=== PATIENT | male | born 1990 | race Caucasian/White ===

== ENCOUNTER 2021-09-26 01:38 | Emergency (ER) | payer OTHER ==
--- NOTE | 2021-09-26 02:11 | ED ---
General Adult HPI - General Stated complaint: Testicular Pain Time Seen by Provider: 09/26/21 01:54 Source: patient, RN notes reviewed Mode of arrival: ambulatory Limitations: no limitations - History of Present Illness Initial comments: This is a 31-year-old male presents emergency Department chief complaint testicular pain. Patient states having ongoing issues. Patient was here [facility] last night was given Toradol discharged home. Patient states that he's had small stones prior to this but states pain worsened tonight burn the emergency room here. Patient was given 100mcg fentanyl prior arrival. Patient has no dysuria no hematuria no trauma denies any significantswelling redness no abdominal pain no other complaints. - Related Data Previous Rx's Medication Instructions Recorded Ketorolac [Toradol] 10 mg PO Q8HR #15 tab 09/26/21 Allergies Allergy/AdvReac Type Severity Reaction Status Date / Time No Known Allergies Allergy Verified 09/26/21 02:23 Review of Systems ROS Statement: Those systems with pertinent positive or pertinent negative responses have been documented in the HPI. ROS Other: All systems not noted in ROS Statement are negative. General Exam Limitations: no limitations General appearance: alert, in no apparent distress Head exam: Present: atraumatic, normocephalic, normal inspection Eye exam: Present: normal appearance, PERRL, EOMI. Absent: scleral icterus, conjunctival injection, periorbital swelling ENT exam: Present: normal exam, normal oropharynx, mucous membranes moist Respiratory exam: Present: normal lung sounds bilaterally. Absent: respiratory distress, wheezes, rales, rhonchi, stridor Cardiovascular Exam: Present: regular rate, normal rhythm, normal heart sounds. Absent: systolic murmur, diastolic murmur, rubs, gallop, clicks GI/Abdominal exam: Present: soft, normal bowel sounds. Absent: distended, tenderness, guarding, rebound, rigid exam: Present: normal inspection, testicular tenderness. Absent: urethral discharge, scrotal swelling, vertical testicular lie Back exam: Absent: CVA tenderness (R), CVA tenderness (L) Course Vital Signs 09/26/21 02:25 Temperature 97.4 F L Pulse Rate 98 Respiratory 14 Rate Blood Pressure 136/84 O2 Sat by Pulse 98 Oximetry Medical Decision Making - Medical Decision Making 31-year-old male presented for scrotal pain. This apparently has been ongoing issue and which he now is received 3 ultrasound with no acute findings. Patient was placed on antibiotics for possible infection. Patiently advised to follow- up with urology as there is no obvious signs of injury infection swelling redness or any other acute findings. - Lab Data Lab Results 09/26/21 Range/Units 03:33 Urine Color Yellow Urine Appearance Clear (Clear) Urine pH 5.5 (5.0-8.0) Ur Specific [place] 1.024 (1.001-1.035) Urine Protein Negative (Negative) Urine Glucose (UA) 4+ H (Negative) Urine Ketones Negative (Negative) Urine Blood Negative (Negative) Urine Nitrite Negative (Negative) Urine Bilirubin Negative (Negative) Urine Urobilinogen <2.0 (<2.0) mg/dL Ur Leukocyte Esterase Negative (Negative) Disposition Clinical Impression: Testicular pain, right Disposition: HOME SELF-CARE Condition: Stable Instructions (If sedation given, give patient instructions): Testicle Pain (ED) Additional Instructions: Please return to the Emergency Department if symptoms worsen or any other concerns. Prescriptions: Ketorolac [Toradol] 10 mg PO Q8HR #15 tab Is patient prescribed a controlled substance at d/c from ED?: No Referrals: Dale Parikh MD [STAFF PHYSICIAN] - 1-2 days Time of Disposition: 04:02
[2021-09-26 02:29] VITALS: BP 136/84; PULSE 98; RESP 14; TEMP 97.4
--- NOTE | 2021-09-26 03:00 | US ---
EXAMINATION TYPE: US scrotum with doppler. Grayscale and color Doppler Duplex imaging performed of t chase scrotum. DATE OF EXAM: 09/26/2021 COMPARISON: NONE CLINICAL HISTORY: pain. EXAM MEASUREMENTS: TESTICLES: Right Testicle: 3.1 x 2.0 x 3.2 cm Left Testicle: 3.6 x 2.1 x 2.8 cm EPIDIDYMIS HEAD: Right Epididymis: 0.8 cm Left Epididymis: 0.8 cm Doppler performed to assess for testicular vascularity; good bilateral color flow and waveforms are s een. There is no evidence of testicular torsion. Presence of hydroceles: no Presence of varicoceles: no IMPRESSION: Normal exam. No evidence of testicular torsion or mass. No free fluid.
[2021-09-26 03:56] LABS: Appearance,Urine Clear (Clear); Bilirubin,Urine Negative (Negative); Blood,Urine Negative (Negative); Color,Urine Yellow; Glucose,Urine (UA) 4+ (Negative); Ketones,Urine Negative (Negative); Leukocyte Esterase,Urine Negative (Negative); Nitrite,Urine Negative (Negative); PH, Urine 5.5 (5.0-8.0); Protein,Urine Negative (Negative); Specific Gravity,Urine 1.024 (1.001-1.035); Urobilinogen,Urine <2.0 mg/dL (<2.0)
[2021-09-26 04:19] LABS: Glucose,Whole Blood 205 mg/dL (75-99)
== END 2021-09-26 05:30 | disposition home or self-care (01) ==
LOC: EC 01:38
DX: N50.811 Right testicular pain (principal)
CPT/HCPCS: 36415; 76870; 81003; 93975; 99284

== ENCOUNTER 2021-10-01 14:21 | Emergency (ER) | payer OTHER ==
[2021-10-01 14:25] LABS: Glucose,Whole Blood 285 mg/dL (75-99)
[2021-10-01 14:27] VITALS: BP 147/102; PULSE 120; RESP 16; TEMP 98.1
[2021-10-01] MEDS ORDERED: SODIUM CHLORIDE 0.9% 1,000 ML IV STA (14:28)
[2021-10-01] MEDS ORDERED: HYDROmorphone 1 MG/ML 1 ML SYRINGE IVP STA (14:30)
[2021-10-01] MEDS ORDERED: ONDANSETRON 4 MG/2 ML VIAL IVP STA (14:30)
--- NOTE | 2021-10-01 14:35 | ED ---
Male Urogenital HPI - General Chief complaint: Urogenital Stated complaint: Male Time Seen by Provider: 10/01/21 14:22 Source: patient, EMS, RN notes reviewed Mode of arrival: EMS Limitations: no limitations - History of Present Illness Initial comments: This is a pleasant 31-year-old male with a history of insulin-controlled diabetes mellitus. He presents emergent department today complaining of testicular pain. States this is going on for a few weeks. Became worse and he went to the hospital. Patient had an ultrasound there and saw urologist yesterday. Patient was started on doxycycline. It sounds as if the patient was diagnosed with epididymitis. Patient complaining of pain to the right and left testicle this time. According to EMS he had elevated blood sugar in the ambulance of greater than 500. However rechecked it here and it was 283. He denies any nausea or vomiting. No chest pain or shortness of breath. No fever or chills. No abdominal pain. No skin rashes or lesions. No penile discharge. No hematuria. States any manipulation of the testicles causes significant pain. Patient has been trying a jockstrap as directed by the urologist. Denies headache. Denies numbness or tingling. No vision or hearing changes. - Related Data Home Medications Medication Instructions Recorded Confirmed INSULIN LISPRO (humaLOG) [humaLOG] 10 units SQ AC-TID 10/01/21 10/01/21 Ibuprofen [Motrin Ib] 400 mg PO Q8H PRN 10/01/21 10/01/21 Insulin Glargine [Lantus Vial] 40 unit SQ HS 10/01/21 10/01/21 Previous Rx's Medication Instructions Recorded HYDROcodone/APAP 5-325MG [[place] 1 tab PO Q6HR PRN 3 Days #12 tab 10/01/21 5-325] Allergies Allergy/AdvReac Type Severity Reaction Status Date / Time No Known Allergies Allergy Verified 10/01/21 16:27 Review of Systems ROS Statement: Those systems with pertinent positive or pertinent negative responses have been documented in the HPI. ROS Other: All systems not noted in ROS Statement are negative. Past Medical History Past Medical History: Diabetes Mellitus Additional Past Medical History / Comment(s): DM Type 1 History of Any Multi-Drug Resistant Organisms: None Reported Past Surgical History: No Surgical Hx Reported Past Psychological History: No Psychological Hx Reported Smoking Status: Current every day smoker Past Alcohol Use History: None Reported Past Drug Use History: Marijuana General Exam Limitations: no limitations General appearance: alert, in distress Head exam: Present: atraumatic, normocephalic, normal inspection Eye exam: Present: normal appearance, PERRL, EOMI. Absent: scleral icterus, conjunctival injection, periorbital swelling ENT exam: Present: normal exam, mucous membranes moist Neck exam: Present: normal inspection. Absent: tenderness, meningismus, lymphadenopathy Respiratory exam: Present: normal lung sounds bilaterally. Absent: respiratory distress, wheezes, rales, rhonchi, stridor Cardiovascular Exam: Present: normal rhythm, tachycardia, normal heart sounds. Absent: systolic murmur, diastolic murmur, rubs, gallop, clicks GI/Abdominal exam: Present: soft, normal bowel sounds. Absent: distended, tenderness, guarding, rebound, rigid exam: Present: testicular tenderness, circumcision, other (Patient has tenderness over the right epididymal area and to a lesser sent the left. There is no evidence of testicular torsion on exam. Cremasteric reflexes intact.). Absent: urethral discharge Extremities exam: Present: normal inspection, full ROM, normal capillary refill. Absent: tenderness, pedal edema, joint swelling, calf tenderness Back exam: Present: normal inspection Neurological exam: Present: alert, oriented X3, CN II-XII intact Psychiatric exam: Present: normal affect, normal mood Skin exam: Present: warm, dry, intact, normal color. Absent: rash Course Vital Signs 10/01/21 14:24 Temperature 98.1 F Pulse Rate 120 H Respiratory 16 Rate Blood Pressure 147/102 O2 Sat by Pulse 98 Oximetry Medical Decision Making - Medical Decision Making Patient presents with testicular pain. Physical exam findings not consistent with testicular torsion. Does have some pain over the epididymis. On to be hyperglycemic at 283. We'll order basic lab work, we'll repeat the ultrasound. Pain medicine here. Patient apparently has had multiple visits to facilities and has been treated with antibiotics. No evidence of testicular torsion or epididymitis on ultrasound. We'll have the patient continue to take the doxycycline as prescribed by his urologist in [place]. Patient was told to return to the ER for any signs or symptoms worsen. Told to return immediately if any other problems arise. All questions answered. Treatment plan discussed. Patient in agreement She can continue the ibuprofen at home. I did agree to give him a short course of [place], 3 days. - Lab Data Result diagrams: 10/01/21 14:48 10/01/21 14:48 Lab Results 10/01/21 10/01/21 10/01/21 Range/Units 14:23 14:24 14:48 WBC 5.8 (3.8-10.6) k/uL RBC 4.35 (4.30-5.90) m/uL Hgb 12.9 L (13.0-17.5) gm/dL Hct 41.2 (39.0-53.0) % MCV 94.8 (80.0-100.0) fL MCH 29.7 (25.0-35.0) pg MCHC 31.3 (31.0-37.0) g/dL RDW 14.0 (11.5-15.5) % Plt Count 460 H (150-450) k/uL MPV 6.7 Neutrophils % 50 % Lymphocytes % 30 % Monocytes % 9 % Eosinophils % 7 % Basophils % 1 % Neutrophils # 2.9 (1.3-7.7) k/uL Lymphocytes # 1.7 (1.0-4.8) k/uL Monocytes # 0.5 (0-1.0) k/uL Eosinophils # 0.4 (0-0.7) k/uL Basophils # 0.1 (0-0.2) k/uL Sodium (137-145) mmol/L Potassium (3.5-5.1) mmol/L Chloride (98-107) mmol/L Carbon Dioxide (22-30) mmol/L Anion Gap mmol/L BUN (9-20) mg/dL Creatinine (0.66-1.25) mg/dL Est GFR (CKD-EPI)AfAm (>60 ml/min/1.73 sqM) Est GFR (CKD-EPI)NonAf (>60 ml/min/1.73 sqM) Glucose (74-99) mg/dL POC Glucose (mg/dL) 285 H (75-99) mg/dL POC Glu Art Manager ID Samara White Plasma Lactic Acid Jonathan (0.7-2.0) mmol/L Calcium (8.4-10.2) mg/dL Total Bilirubin (0.2-1.3) mg/dL AST (17-59) U/L ALT (4-49) U/L Alkaline Phosphatase (38-126) U/L Total Protein (6.3-8.2) g/dL Albumin (3.5-5.0) g/dL Urine Color Light Yellow Urine Appearance Clear (Clear) Urine pH 6.5 (5.0-8.0) Ur Specific [place] 1.027 (1.001-1.035) Urine Protein Negative (Negative) Urine Glucose (UA) 4+ H (Negative) Urine Ketones Negative (Negative) Urine Blood Negative (Negative) Urine Nitrite Negative (Negative) Urine Bilirubin Negative (Negative) Urine Urobilinogen <2.0 (<2.0) mg/dL Ur Leukocyte Esterase Negative (Negative) 10/01/21 10/01/21 Range/Units 14:48 14:48 WBC (3.8-10.6) k/uL RBC (4.30-5.90) m/uL Hgb (13.0-17.5) gm/dL Hct (39.0-53.0) % MCV (80.0-100.0) fL MCH (25.0-35.0) pg MCHC (31.0-37.0) g/dL RDW (11.5-15.5) % Plt Count (150-450) k/uL MPV Neutrophils % % Lymphocytes % % Monocytes % % Eosinophils % % Basophils % % Neutrophils # (1.3-7.7) k/uL Lymphocytes # (1.0-4.8) k/uL Monocytes # (0-1.0) k/uL Eosinophils # (0-0.7) k/uL Basophils # (0-0.2) k/uL Sodium 136 L (137-145) mmol/L Potassium 4.5 (3.5-5.1) mmol/L Chloride 104 (98-107) mmol/L Carbon Dioxide 24 (22-30) mmol/L Anion Gap 8 mmol/L BUN 23 H (9-20) mg/dL Creatinine 0.50 L (0.66-1.25) mg/dL Est GFR (CKD-EPI)AfAm >90 (>60 ml/min/1.73 sqM) Est GFR (CKD-EPI)NonAf >90 (>60 ml/min/1.73 sqM) Glucose 282 H (74-99) mg/dL POC Glucose (mg/dL) (75-99) mg/dL POC Glu Art Manager ID Plasma Lactic Acid Jonathan 1.3 (0.7-2.0) mmol/L Calcium 9.6 (8.4-10.2) mg/dL Total Bilirubin 0.3 (0.2-1.3) mg/dL AST 25 (17-59) U/L ALT 35 (4-49) U/L Alkaline Phosphatase 61 (38-126) U/L Total Protein 6.4 (6.3-8.2) g/dL Albumin 3.5 (3.5-5.0) g/dL Urine Color Urine Appearance (Clear) Urine pH (5.0-8.0) Ur Specific [place] (1.001-1.035) Urine Protein (Negative) Urine Glucose (UA) (Negative) Urine Ketones (Negative) Urine Blood (Negative) Urine Nitrite (Negative) Urine Bilirubin (Negative) Urine Urobilinogen (<2.0) mg/dL Ur Leukocyte Esterase (Negative) Disposition Clinical Impression: Hydrocele in adult, Testicular pain, right Disposition: HOME SELF-CARE Condition: Good Instructions (If sedation given, give patient instructions): Epididymitis (ED), Testicle Pain (ED), Hydrocele (ED) Additional Instructions: Make a follow-up appointment with urologist as directed. Finish the course of antibiotics as prescribed by your urologist yesterday. Take the pain medications as directed. Follow-up with your regular physician as directed. Return to the ER immediately if any symptoms worsen, new symptoms arise, or any other problems develop. Continue use of the jockstrap and Epsom salt baths as directed. Is patient prescribed a controlled substance at d/c from ED?: Yes When asked, does pt state using other controlled substances?: No If prescribed controlled substance>3 days was MAPS reviewed?: No If opioid is for acute pain is fill amount 7 days or less?: Yes Referrals: Nikita Terry MD [STAFF PHYSICIAN] - 10/05/21 Time of Disposition: 16:47
[2021-10-01 14:56] LABS: Appearance,Urine Clear (Clear); Bilirubin,Urine Negative (Negative); Blood,Urine Negative (Negative); Color,Urine Light Yellow; Glucose,Urine (UA) 4+ (Negative); Ketones,Urine Negative (Negative); Leukocyte Esterase,Urine Negative (Negative); Nitrite,Urine Negative (Negative); PH, Urine 6.5 (5.0-8.0); Protein,Urine Negative (Negative); Specific Gravity,Urine 1.027 (1.001-1.035); Urobilinogen,Urine <2.0 mg/dL (<2.0)
[2021-10-01 15:19] LABS: Basophils # (A) 0.1 k/uL (0-0.2); Basophils % (A) 1 %; Eosinophils # (A) 0.4 k/uL (0-0.7); Eosinophils % (A) 7 %; HCT 41.2 % (39.0-53.0); HGB 12.9 gm/dL (13.0-17.5); Lymphocytes # (A) 1.7 k/uL (1.0-4.8); Lymphocytes % (A) 30 %; MCH 29.7 pg (25.0-35.0); MCHC 31.3 g/dL (31.0-37.0); MCV 94.8 fL (80.0-100.0); Mean Platelet Volume 6.7; Monocytes # (A) 0.5 k/uL (0-1.0); Monocytes % (A) 9 %; Neutrophils # (A) 2.9 k/uL (1.3-7.7); Neutrophils % (A) 50 %; Platelet Count 460 k/uL (150-450); RBC 4.35 m/uL (4.30-5.90); WBC 5.8 k/uL (3.8-10.6)
[2021-10-01 15:36] LABS: ALT 35 U/L (4-49); AST 25 U/L (17-59); African American GFR (CKD) >90 (>60 ml/min/1.73 sqM); Albumin 3.5 g/dL (3.5-5.0); Alkaline Phosphatase 61 U/L (38-126); Anion Gap 8 mmol/L; Blood Urea Nitrogen 23 mg/dL (9-20); Calcium 9.6 mg/dL (8.4-10.2); Carbon Dioxide 24 mmol/L (22-30); Chloride 104 mmol/L (98-107); Glucose 282 mg/dL (74-99); Non-African American GFR(CKD) >90 (>60 ml/min/1.73 sqM); Potassium 4.5 mmol/L (3.5-5.1); Sodium 136 mmol/L (137-145); Total Bilirubin 0.3 mg/dL (0.2-1.3); Total Protein 6.4 g/dL (6.3-8.2)
--- NOTE | 2021-10-01 16:25 | US ---
EXAMINATION TYPE: US scrotum with doppler. Grayscale and color Doppler Duplex imaging performed of tim stone scrotum. DATE OF EXAM: 10/01/2021 COMPARISON: Prior ultrasound 5 days ago CLINICAL HISTORY: testicle pain. bilateral pain and edema for 3 weeks, getting worse EXAM MEASUREMENTS: TESTICLES: Right Testicle: 4.3 x 1.8 x 3.2 cm Left Testicle: 3.5 x 1.7 x 3.1 cm EPIDIDYMIS HEAD: Right Epididymis: 0.8 cm Left Epididymis: 0.9 cm Doppler performed to assess for testicular vascularity; good bilateral color flow and waveforms are s een. . Presence of hydroceles: no Presence of varicoceles: [id number] vascularity lateral to right testicle Comparison view show symmetric blood flow to both testicles. IMPRESSION: Right-sided varicocele may be present. No suspicious decreased or increased blood flow to either testicle.
[2021-10-05 14:55] LABS: C. trachomatis,PCR Negative (Neg,Equiv); Chlamydia trachomatis Source Urine; N. gonorrhoeae,PCR Negative (Neg,Equiv); Neisseria Source Urine
== END 2021-10-01 17:26 | disposition home or self-care (01) ==
LOC: EC 14:21
DX: N43.3 Hydrocele, unspecified (principal); N50.811 Right testicular pain; E10.9 Type 1 diabetes mellitus without complications; F17.200 Nicotine dependence, unspecified, uncomplicated; Z79.4 Long term (current) use of insulin
CPT/HCPCS: 36415; 80053; 83605; 85025; 81003; 87040; 87491; 87591; 93975; 76870; 99284; 96374; 96375; 96361; J2405; J1170

== ENCOUNTER 2021-10-04 12:03 | Emergency (ER) | payer OTHER ==
[2021-10-04 12:14] VITALS: TEMP 98.3
[2021-10-04] MEDS ORDERED: SODIUM CHLORIDE 0.9% 1,000 ML IV ONE (12:29)
[2021-10-04] MEDS ORDERED: MORPHINE SULFATE 4 MG/ML SYRINGE IVP STA (12:29)
--- NOTE | 2021-10-04 12:42 | ED ---
General Adult HPI - General Chief complaint: Urogenital Stated complaint: testicular pain Time Seen by Provider: 10/04/21 12:08 Source: patient, EMS, RN notes reviewed, old records reviewed Mode of arrival: EMS Limitations: no limitations - History of Present Illness Initial comments: 31-year-old male presenting for evaluation of thickened pain. This patient's third visit at this institution within the last 1 week. He states he has bilateral testicular pain which is been constant. He denies injury. Denies fever. He states he does have some trouble initiating urine stream but does not have any urgency, frequency or dysuria. No fever. No abdominal pain. Patient had seen urology who recommended supportive undergarments. - Related Data Home Medications Medication Instructions Recorded Confirmed INSULIN LISPRO (humaLOG) [humaLOG] 10 units SQ AC-TID 10/01/21 10/01/21 Ibuprofen [Motrin Ib] 400 mg PO Q8H PRN 10/01/21 10/01/21 Insulin Glargine [Lantus Vial] 40 unit SQ HS 10/01/21 10/01/21 Previous Rx's Medication Instructions Recorded HYDROcodone/APAP 5-325MG [[place] 1 tab PO Q6HR PRN 3 Days #12 tab 10/01/21 5-325] Ibuprofen [Motrin] 600 mg PO Q8HR PRN #24 tab 10/04/21 Allergies Allergy/AdvReac Type Severity Reaction Status Date / Time No Known Allergies Allergy Verified 10/04/21 12:14 Review of Systems ROS Statement: Those systems with pertinent positive or pertinent negative responses have been documented in the HPI. ROS Other: All systems not noted in ROS Statement are negative. Past Medical History Past Medical History: Diabetes Mellitus Additional Past Medical History / Comment(s): DM Type 1 History of Any Multi-Drug Resistant Organisms: None Reported Past Surgical History: No Surgical Hx Reported Past Psychological History: No Psychological Hx Reported Smoking Status: Current every day smoker Past Alcohol Use History: None Reported Past Drug Use History: Marijuana General Exam Limitations: no limitations General appearance: alert, in no apparent distress Head exam: Present: atraumatic, normocephalic Eye exam: Present: normal appearance, PERRL ENT exam: Present: normal exam Neck exam: Present: normal inspection. Absent: tenderness, meningismus Respiratory exam: Present: normal lung sounds bilaterally. Absent: respiratory distress, wheezes Cardiovascular Exam: Present: regular rate, normal rhythm GI/Abdominal exam: Present: soft. Absent: distended, tenderness, guarding, rebound exam: Present: normal inspection, testicular tenderness, vertical testicular lie, other (Cremasterics reflex present). Absent: urethral discharge, scrotal swelling Extremities exam: Present: normal inspection, normal capillary refill. Absent: pedal edema Neurological exam: Present: alert, oriented X3, CN II-XII intact. Absent: motor sensory deficit Psychiatric exam: Present: normal affect, normal mood Skin exam: Present: warm, dry, intact. Absent: cyanosis, diaphoretic Course Vital Signs 10/04/21 12:08 Temperature 98.3 F Pulse Rate 113 H Respiratory 22 Rate Blood Pressure 129/97 O2 Sat by Pulse 97 Oximetry Medical Decision Making - Medical Decision Making Urinalysis negative for signs of infection, normal CBC, normal CMP, ultrasound is performed again which shows normal arterial flow to both testicles, no hydrocele or varicocele. Patient will be referred to urology. - Lab Data Result diagrams: 10/04/21 12:33 10/04/21 12:33 Lab Results 10/04/21 10/04/21 10/04/21 Range/Units 12:33 12:33 12:33 WBC 6.2 (3.8-10.6) k/uL RBC 4.49 (4.30-5.90) m/uL Hgb 13.4 (13.0-17.5) gm/dL Hct 41.5 (39.0-53.0) % MCV 92.3 (80.0-100.0) fL MCH 29.8 (25.0-35.0) pg MCHC 32.3 (31.0-37.0) g/dL RDW 13.7 (11.5-15.5) % Plt Count 410 (150-450) k/uL MPV 6.4 Neutrophils % 51 % Lymphocytes % 32 % Monocytes % 8 % Eosinophils % 6 % Basophils % 1 % Neutrophils # 3.2 (1.3-7.7) k/uL Lymphocytes # 2.0 (1.0-4.8) k/uL Monocytes # 0.5 (0-1.0) k/uL Eosinophils # 0.4 (0-0.7) k/uL Basophils # 0.1 (0-0.2) k/uL Sodium 140 (137-145) mmol/L Potassium 4.0 (3.5-5.1) mmol/L Chloride 106 (98-107) mmol/L Carbon Dioxide 26 (22-30) mmol/L Anion Gap 8 mmol/L BUN 17 (9-20) mg/dL Creatinine 0.49 L (0.66-1.25) mg/dL Est GFR (CKD-EPI)AfAm >90 (>60 ml/min/1.73 sqM) Est GFR (CKD-EPI)NonAf >90 (>60 ml/min/1.73 sqM) Glucose 98 (74-99) mg/dL Calcium 10.0 (8.4-10.2) mg/dL Total Bilirubin 0.3 (0.2-1.3) mg/dL AST 23 (17-59) U/L ALT 31 (4-49) U/L Alkaline Phosphatase 61 (38-126) U/L Total Protein 6.7 (6.3-8.2) g/dL Albumin 3.7 (3.5-5.0) g/dL Urine Color Yellow Urine Appearance Clear (Clear) Urine pH 7.5 (5.0-8.0) Ur Specific [place] 1.015 (1.001-1.035) Urine Protein Negative (Negative) Urine Glucose (UA) 3+ H (Negative) Urine Ketones Negative (Negative) Urine Blood Negative (Negative) Urine Nitrite Negative (Negative) Urine Bilirubin Negative (Negative) Urine Urobilinogen <2.0 (<2.0) mg/dL Ur Leukocyte Esterase Negative (Negative) Disposition Clinical Impression: Pain in testicle Disposition: HOME SELF-CARE Condition: Good Instructions (If sedation given, give patient instructions): Testicle Pain (ED) Prescriptions: Ibuprofen [Motrin] 600 mg PO Q8HR PRN #24 tab PRN Reason: Pain Is patient prescribed a controlled substance at d/c from ED?: No Referrals: None,Stated [Primary Care Provider] - 1-2 days Chon Mcghee MD [STAFF PHYSICIAN] - 1-2 days Time of Disposition: 14:04
[2021-10-04 12:53] LABS: Basophils # (A) 0.1 k/uL (0-0.2); Basophils % (A) 1 %; Eosinophils # (A) 0.4 k/uL (0-0.7); Eosinophils % (A) 6 %; HCT 41.5 % (39.0-53.0); HGB 13.4 gm/dL (13.0-17.5); Lymphocytes % (A) 32 %; MCH 29.8 pg (25.0-35.0); MCHC 32.3 g/dL (31.0-37.0); MCV 92.3 fL (80.0-100.0); Mean Platelet Volume 6.4; Monocytes # (A) 0.5 k/uL (0-1.0); Monocytes % (A) 8 %; Neutrophils # (A) 3.2 k/uL (1.3-7.7); Neutrophils % (A) 51 %; Platelet Count 410 k/uL (150-450); RBC 4.49 m/uL (4.30-5.90); RDW 13.7 % (11.5-15.5); WBC 6.2 k/uL (3.8-10.6)
[2021-10-04 12:56] LABS: Appearance,Urine Clear (Clear); Bilirubin,Urine Negative (Negative); Blood,Urine Negative (Negative); Color,Urine Yellow; Glucose,Urine (UA) 3+ (Negative); Ketones,Urine Negative (Negative); Leukocyte Esterase,Urine Negative (Negative); Nitrite,Urine Negative (Negative); PH, Urine 7.5 (5.0-8.0); Protein,Urine Negative (Negative); Specific Gravity,Urine 1.015 (1.001-1.035); Urobilinogen,Urine <2.0 mg/dL (<2.0)
[2021-10-04 13:04] LABS: ALT 31 U/L (4-49); AST 23 U/L (17-59); African American GFR (CKD) >90 (>60 ml/min/1.73 sqM); Albumin 3.7 g/dL (3.5-5.0); Alkaline Phosphatase 61 U/L (38-126); Anion Gap 8 mmol/L; Blood Urea Nitrogen 17 mg/dL (9-20); Carbon Dioxide 26 mmol/L (22-30); Chloride 106 mmol/L (98-107); Glucose 98 mg/dL (74-99); Non-African American GFR(CKD) >90 (>60 ml/min/1.73 sqM); Sodium 140 mmol/L (137-145); Total Bilirubin 0.3 mg/dL (0.2-1.3); Total Protein 6.7 g/dL (6.3-8.2)
--- NOTE | 2021-10-04 13:50 | US ---
EXAMINATION TYPE: US scrotum with doppler. Grayscale and color Doppler Duplex imaging performed of tim stone scrotum. DATE OF EXAM: 10/04/2021 COMPARISON: US x2 in the past week including 3 days ago CLINICAL HISTORY: [pain. Bilateral testicular pain EXAM MEASUREMENTS: TESTICLES: Right Testicle: 3.8 x 2.1 x 2.7 cm Left Testicle: 3.5 x 2.7 x 2.9 cm EPIDIDYMIS HEAD: Right Epididymis: 1.4 cm Left Epididymis: 1.6 cm Doppler performed to assess for testicular vascularity; good arterial and venous flow seen within the left testicle, good arterial flow seen within the right testicle, unable to obtain venous flow withi n the right testicle. Presence of hydroceles: no Presence of varicoceles: no Comparison view redemonstrate symmetric blood flow to both testicles. IMPRESSION: No suspicious increased or decreased blood flow to either testicle.
[2021-10-04 14:23] VITALS: BP 139/99; PULSE 109; RESP 18
== END 2021-10-04 14:23 | disposition home or self-care (01) ==
LOC: EC 12:03
DX: N50.811 Right testicular pain (principal); N50.812 Left testicular pain; E11.9 Type 2 diabetes mellitus without complications; F17.200 Nicotine dependence, unspecified, uncomplicated; F12.90 Cannabis use, unspecified, uncomplicated; Z79.4 Long term (current) use of insulin
CPT/HCPCS: 99284; 96374; 96361; 36415; 80053; 85025; 81003; 93975; 76870; J2270